=== PATIENT | female | born 1955 | race Caucasian/White ===

== ENCOUNTER 2023-03-29 13:57 | Day surgery (SDC) | payer MEDICARE, OTHER, SELFPAY ==
--- NOTE | 2023-03-29 | PATH_ITS ---
[facility] Accession Number: [id number] No. of containers..01 Tissue . 01 Material submitted: . gastrointestinal site - ANTRUM BIOPSY . 01 Diagnosis: Antrum, Biopsy: Gastric oxyntic mucosa with no diagnostic abnormality. No evidence of Helicobacter organisms on H/E stain. Negative for intestinal metaplasia. Negative for dysplasia or malignancy. MRV 04/02/2023 1404 Local . 01 Electronically signed: . Mac Rogers MD, PhD, Pathologist NPI- [id number] . 01 Gross description: . ANTRUM BIOPSY: Received in formalin is 1 fragment(s) of hodges, soft tissue measuring 0.2 x 0.2 x 0.2 cm submitted entirely in 1 cassette(s) /AINSLEY 04/01/2023 0051 Local . 01 Pathologist provided ICD-10: K21.9 . 01 CPT . 786349 Specimen Comment: A courtesy copy of this report has been sent to [phone] Performed at: 01 [facility] [address] [place] [address], [place], [place] [id number] MD David Richey MD Phone: [phone]
[2023-03-29 14:14] VITALS: BP 153/93; PULSE 117; RESP 17; TEMP 36.5; O2SAT 97; BMI 31.6
[2023-03-29] MEDS: LACTATED RINGERS 1,000 ML 100 ML IV (14:26)
--- NOTE | 2023-03-29 15:05 | PM.HP.1 ---
History of Present Illness History of Present Illness Date Patient Seen: 03/29/23 Time Patient Seen: 15:06 Chief complaint: SDC Narrative: I reviewed my recent office note. No significant changes. The patient has not been totally compliant with a proactive anti-reflux approach. She still has regular symptoms especially when bending over. [facility] Medical History (Updated 03/29/23 @ 14:14 by Toño Watkins RN) Cholelithiasis Fibromyalgia Hiatal hernia Normal colonoscopy PTSD (post-traumatic stress disorder) Social History household members: spouse Smoking Status: Never smoker alcohol intake: never Meds Home Medications and Allergies Home Medications Medication Instructions Recorded Confirmed Type simvastatin 40 mg PO DAILY 03/29/23 03/29/23 History Allergies Allergy/AdvReac Type Severity Reaction Status Date / Time No Known Drug Allergies Allergy Verified 03/29/23 14:02 Review of Systems Review of Systems ROS: Yes All systems reviewed with the patient and are negative except as otherwise documented Exam Vital Signs (past 8 hours): - 03/29/23 14:14 Temperature 97.7 F Pulse Rate 117 H Respiratory Rate 17 Blood Pressure 153/93 H Pulse Oximetry 97 Oxygen Delivery Method Room Air Oxygen Delivery Method Room Air Const General: cooperative HENMT Head: normal to inspection Eyes General: appearance normal, both eyes and all related structures Neck Neck: normal visual inspection Chest Chest: normal inspection of the chest Resp Effort & Inspection: normal respiratory effort Cardio Rate: regular rate GI Inspection: normal to inspection Skin General: no rashes or lesions noted Neuro General: patient alert and patient awake Extrem General: normal to inspection and no pedal edema Psych Appearance: grossly normal Assessment & Plan Assessment & Plan narrative: 67-year-old female with refractory reflux and a personal history of colon polyps. EGD and colonoscopy are pursued today.
--- NOTE | 2023-03-29 15:07 | PM.PREOP ---
Pre-operative Note Interval Note History & Physical reviewed/Exam performed by Physician: Yes Changes to H&P: No ASA Class (for procedural sedation): II
[2023-03-29 16:15] VITALS: BP 123/93; PULSE 82; RESP 18; TEMP 36.3; O2SAT 93
[2023-03-29 16:20] VITALS: BP 128/87; PULSE 81; RESP 16; O2SAT 95
--- NOTE | 2023-03-29 16:20 | PM.OP.EC ---
Operative Date/Time/Diagnoses Date of procedure: 03/29/23 Time of procedure: 16:20 Pre-op diagnosis: Refractory GERD personal history of colon polyps Post-op diagnosis: same Procedure & Clinicians Study performed: EGD with biopsies and a colonoscopy Same procedure as scheduled: Yes Indications: Refractory GERD and a personal history of colon polyps Surgeon: Cameron Morales Procedure Notes SCOAP/Timeout: Done Procedure in detail: After the risks and benefits were explained, written and verbal informed consent was obtained. The patient was brought into the procedure room and placed into the left lateral decubitus position. Please see anesthesia note for sedation details. The scope was introduced into the mouth through the bite block and advanced under direct visualization to the 2nd portion of the duodenum. The scope was slowly withdrawn carefully examining the mucosa for any defects or lesions. Retroflexed views were accomplished in the stomach. The stomach was decompressed, the scope was then removed from the patient who tolerated the procedure slightly suboptimally. She was coughing and sneezing quite a bit. The patient was then turned around. A digital rectal examination was accomplished. The scope was introduced into the rectum and advanced to the cecum as identified by the appendiceal orifice and ileocecal valve. The scope was slowly withdrawn to carefully examine the mucosa for any defects or lesions. Multiple direct views were made through the dentate line for exclusion of pathology. The colon was decompressed. The scope was removed from the patient who tolerated the procedure well. Pediatric colonoscope Bowel prep adequate Scope withdrawal time: 7 minutes Sedation minutes: 28 Complications: none Impression: 1. Duodenum: This was visually normal from the bulb through to the 2nd portion. 2. Stomach: Mild gastropathy. Biopsy was taken from the antrum for exclusion of Helicobacter. No additional pathology was appreciated throughout including retroflexed views. Subtle sliding hiatal hernia was noted. 3. Esophagus: The squamocolumnar junction correlated with the top of the gastric folds. GEJ was at about 35 cm from the incisors. There was a subtle sliding hiatal hernia. No acute erosive changes no strictures no mass lesions. 4. Colon: No significant polyps mass lesions or inflammatory features identified throughout. Endoscopic diagnosis 1. Mild gastropathy 2. Subtle sliding hiatal hernia 3. Otherwise visually unremarkable EGD 4. Visually unremarkable colonoscopy Post-procedure Plan for aftercare: 1. Await histopathology. 2. Continue anti-reflux therapy. 3. Repeat colonoscopy 5 years. Disposition: PACU
[2023-03-29 16:25] VITALS: BP 119/75; PULSE 80; RESP 12; O2SAT 96
[2023-03-29 16:31] VITALS: BP 135/87; PULSE 83; RESP 20; O2SAT 96
[2023-03-29 16:36] VITALS: BP 128/82; PULSE 82; RESP 16; TEMP 36.3; O2SAT 98
== END 2023-03-29 16:53 | disposition home or self-care (01) ==
PROVIDERS: PCP Registered Nurse; Referring Provider Internal Medicine Gastroenterology; Visit Provider Internal Medicine Gastroenterology
PROC: 0DJ08ZZ Inspection of Upper Intestinal Tract, Via Natural or Artificial Opening Endoscopic (ICD-10-PCS; CPT 43235; principal; 2023-03-29 14:30)
PROC: 0DJD8ZZ Inspection of Lower Intestinal Tract, Via Natural or Artificial Opening Endoscopic (ICD-10-PCS; CPT 45378; 2023-03-29 14:30)
DX: Z12.11 Encounter for screening for malignant neoplasm of colon (principal); K21.9 Gastro-esophageal reflux disease without esophagitis; K31.9 Disease of stomach and duodenum, unspecified; K44.9 Diaphragmatic hernia without obstruction or gangrene
CPT/HCPCS: 43239; G0105; J2704

== ENCOUNTER → 2025-08-03 13:22 | Outpatient (CLI) | payer MEDICARE, OTHER, SELFPAY ==
--- NOTE | 2025-08-03 13:26 | DI.MRI.S_ITS ---
PROCEDURE: MR CERVICAL SPINE WO CON INDICATIONS: Chronic neck pain; degenerative changes on x-ray TECHNIQUE: Noncontrast sagittal T1 spin echo and T2 fast spin echo, sagittal STIR, foraminal oblique sagittal T2 fast spin echo, and axial gradient echo or T2 fast spin echo through the cervical spine. COMPARISON: Outside Film, CT, CT CERVICAL SPINE WITHOUT CONTRAST, 05/15/2025, 12:46. [facility], CR, XR CERVICAL SPINE FLEXION EXTENSION 3 VIEWS, 07/27/2025, 14:29. FINDINGS: Image quality: Excellent. Alignment and Curvature: Trace 1 mm grade 1 retrolisthesis of C5 on C6. Straightening of the normal cervical lordosis. Bone Marrow: Marrow demonstrates normal overall signal. Spinal Cord: Visualized spinal cord has normal size and signal. No cerebellar tonsillar herniation. Paraspinous Soft Tissues: No paravertebral masses. Prevertebral soft tissues are normal in thickness. C2-C3: Disc desiccation. No significant spinal canal stenosis or neural foraminal narrowing. C3-C4: Disc desiccation and small posterior disc-osteophyte complex as well as bilateral uncovertebral joint and facet hypertrophy. Findings result in mild narrowing of the left neural foramen without significant right neural foraminal narrowing or spinal canal stenosis. C4-C5: Disc desiccation and posterior disc-osteophyte complex as well as bilateral uncovertebral joint and facet hypertrophy. Findings result in mild narrowing of the spinal canal as well as [id number] left and mild right neural foraminal narrowing. C5-C6: Grade 1 retrolisthesis, disc desiccation and posterior disc-osteophyte complex as well as bilateral uncovertebral joint and facet hypertrophy. Findings result in moderate narrowing of the spinal canal with effacement of the ventral and dorsal CSF spaces without abnormal cord signal. There is moderate left and severe right neural foraminal narrowing. C6-C7: Disc desiccation and posterior disc-osteophyte complex as well as bilateral uncovertebral joint and facet hypertrophy. Findings result in ymhv-or-cjopoiem narrowing of the spinal canal as well as moderate to severe right and moderate left neural foraminal narrowing. C7-T1: Mild bilateral uncovertebral joint and facet hypertrophy, resulting in mild bilateral neural foraminal narrowing without significant spinal canal stenosis. IMPRESSION: 1. At C5-6, degenerative changes result in moderate narrowing of the spinal canal as well as severe right and moderate left neural foraminal narrowing. 2. At C6-7, degenerative changes result in [id number] narrowing of the spinal canal as well as moderate to severe right and moderate left neural foraminal narrowing. 3. Additional multilevel degenerative disc disease, uncovertebral joint hypertrophy, and facet hypertrophy as described in the body of the report. Approved by: Tae Lu M.D. on 08/03/2025 at 15:05
== END ==
LOC: MRI 13:23
PROVIDERS: PCP Registered Nurse; Referring Provider Orthopaedic Surgery Orthopaedic Surgery of the Spine; Visit Provider Orthopaedic Surgery Orthopaedic Surgery of the Spine
DX: M47.812 Spondylosis without myelopathy or radiculopathy, cervical region (principal); M47.813 Spondylosis without myelopathy or radiculopathy, cervicothoracic region; M50.31 Other cervical disc degeneration, high cervical region; M48.02 Spinal stenosis, cervical region; M48.03 Spinal stenosis, cervicothoracic region
CPT/HCPCS: 72141

== ENCOUNTER → 2025-08-29 16:39 | Outpatient (CLI) | payer MEDICARE, OTHER, SELFPAY ==
--- NOTE | 2025-08-29 16:41 | DI.MRI.S_ITS ---
PROCEDURE: MR HEAD/BRAIN WO CON INDICATIONS: GAIT ABNORMALITY TECHNIQUE: Non-contrast axial T1 spin echo, axial T2 fast spin echo, sagittal and axial FLAIR, coronal T2 fast spin echo, axial gradient echo, axial diffusion and ADC through the brain. COMPARISON: [facility], MR, MR CERVICAL SPINE WO CON, 08/03/2025, 14:02. FINDINGS: Image quality: This examination is limited by involuntary motion artifact. CSF spaces: Ventricles appear symmetric in size and shape. Basal cisterns are patent. No extra-axial fluid collections. Brain: No intracranial bleeds or mass effects. There is cerebral volume loss for age. There are periventricular and deep white matter chronic small vessel ischemic changes. Brainstem appears normal. Diffusion-weighted images show no acute infarct. No chronic ischemic insults. Normal intravascular flow voids are present. Skull and face: Calvarial bone marrow is normal in signal. Orbits are normal. Sinuses: Sinuses and mastoids are clear. IMPRESSION: No imaging explanation is found for this patient's presenting symptoms. To the limits of this noncontrast study, no findings of intracranial masses or mass effect can be seen. No findings of acute or subacute infarction can be seen. No prior territorial infarct can be seen. Dictated by: Sreedhar Shook M.D. on 08/29/2025 at 16:40 Approved by: Sreedhar Shook M.D. on 08/29/2025 at 16:41
== END ==
PROVIDERS: PCP Registered Nurse; Referring Provider Physician Assistant; Visit Provider Physician Assistant
DX: R26.89 Other abnormalities of gait and mobility (principal)
CPT/HCPCS: 70551